=== PATIENT | male | born 1950 | race Caucasian/White ===

== ENCOUNTER 2016-09-26 08:37 | Day surgery (SDC) | payer OTHER ==
[2016-09-25 11:31] LABS: MANUAL DIFF NEEDED? NO
[2016-09-25 11:31] LABS: URINE MICRO REVIEW NEEDED? NO; URINE SOURCE CLEAN CATCH
[2016-09-25 11:37] LABS: BASO% 0.4 % (0.0-0.8); EOS# 0.26 X1000 (0.0-0.7); EOS% 3.6 % (0.0-10.0); HEMATOCRIT 42.9 % (42.0-52.0); HEMOGLOBIN 14.1 g/dL (14.0-18.0); LYMPH# 1.19 X1000 (1.2-3.4); LYMPH% 16.6 % (20.5-51.1); MCH 30.1 PG (27-31); MCHC 32.9 g/dL (33-37); MCV 91.5 FL (81-99); MONO# 0.46 X1000 (0.11-0.59); MONO% 6.4 % (1.7-9.3); MPV 10.3 FL (7.4-10.4); PLT 239 X1000 (130-400); RBC 4.69 XMIL (4.7-6.1)
[2016-09-25 11:38] LABS: BILIRUBIN URINE NEGATIVE (NEGATIVE); BLOOD URINE NEGATIVE (NEGATIVE); COLOR STRAW; GLUCOSE URINE 200 mg/dL (NEGATIVE); LEUKOCYTES URINE NEGATIVE (NEGATIVE); NITRITE URINE NEGATIVE (NEGATIVE); PROTEIN URINE NEGATIVE (NEGATIVE); SP GRAVITY URINE 1.006; TURBIDITY URINE CLEAR (CLEAR); UR EPITHELIAL CELLS <10 /HPF (<10); URINE BACTERIA NEGATIVE /HPF; URINE RBC <10 /HPF (<10); URINE WBC <10 /HPF (<10); UROBILINOGEN URINE NORMAL (NORMAL)
--- NOTE | 2016-09-25 11:48 | Diag Imaging Result Document ---
PROCEDURE NAME: CHEST-2 VIEWS - 09/25/2016 CHEST X-RAY 2 VIEWS, 09/25/2016: COMPARISON: 07/13/2012. FINDINGS: There is focal infiltrate in the right upper lobe. Heart size is normal. No pneumothorax or pleural effusion. The right minor fissure appears to be elevated. IMPRESSION: Right upper lobe airspace opacity. Elevation of the right minor fissure. Clinical correlation recommended. Chest CT is also recommended.
[2016-09-25 11:55] LABS: AGAP 12; ALBUMIN 3.7 g/dL (3.5-5.0); ALKALINE PHOSPHATASE 103 U/L (32-122); BUN 15 mg/dL (8-22); CHLORIDE 103 mmol/L (98-107); COSMO 280; GOT 13 U/L (10-34); GPT 12 U/L (10-44); POTASSIUM 4.2 mmol/L (3.5-5.1); SODIUM 139 mmol/L (136-145); TCO2 24 mmol/L (25-35); TOTAL BILIRUBIN 0.25 mg/dL (0.20-1.00); TOTAL PROTEIN 6.2 g/dL (6.3-8.3)
--- NOTE | 2016-09-25 14:33 | EKG Report ---
Test Performed on : 09/25/2016 11:10:11 AM Test Reason : PAT Blood Pressure : / mmHG Vent. Rate : 065 BPM Atrial Rate : 065 BPM P-R Int : 156 ms QRS Dur : 096 ms QT Int : 402 ms P-R-T Axes : 040 -45 090 degrees QTc Int : 418 ms Normal sinus rhythm. Left axis deviation Anteroseptal infarct (cited on or before 13-JUL-2012) Nonspecific T wave abnormality Abnormal ECG When compared with ECG of 13-JUL-2012 13:12, ST no longer depressed in Inferior leads ST no longer elevated in Anterolateral leads T wave inversion now evident in Anterolateral leads Confirmed by Vignesh Mckenzie MD ([id number]) on 09/26/2016 9:44:39 PM
[2016-09-26] MEDS ORDERED: REGLAN ONE (08:54)
[2016-09-26] MEDS ORDERED: LR 1,000 ML ONE (08:54)
[2016-09-26] MEDS ORDERED: PEPCID ONE ×2 (08:54)
[2016-09-26] MEDS ORDERED: KEFZOL 1 GM/D5W 50 ML ONE (08:55)
[2016-09-26] MEDS ORDERED: ROBINUL ONE (10:59)
[2016-09-26] MEDS ORDERED: MARCAINE 0.25% PF/EPI 1:200,000 ONE (11:10)
[2016-09-26] MEDS ORDERED: FENTANYL ONE (12:45)
[2016-09-26] MEDS: MORPHINE ONE ×4 (12:52→13:09)
[2016-09-26] MEDS ORDERED: AMIDATE ONE (13:17)
[2016-09-26] MEDS ORDERED: QUELICIN (DOSE) ONE (13:17)
[2016-09-26] MEDS ORDERED: XYLOCAINE-MPF 2% ONE (13:17)
[2016-09-26] MEDS ORDERED: LR 500 ML ONE (13:21)
--- NOTE | 2016-09-26 13:35 | OPERATIVE NOTE ---
PROCEDURE DATE: 09/26/2016 PREOPERATIVE DIAGNOSIS: Incarcerated right inguinal hernia with cecal contents. POSTOPERATIVE DIAGNOSIS: Incarcerated right inguinal hernia with cecal contents. PROCEDURE PERFORMED: Repair with large mesh plug and overlay. SURGEON: Grayson Krause MD DESCRIPTION OF PROCEDURE: The patient was brought to the operating room and, after satisfactory induction of IV and endotracheal anesthesia, athrombic TEDs and a Schumacher catheter were placed. His right groin was prepped and draped in the appropriate manner. A low oblique incision was taken down through skin and subcutaneous tissue between the anterior superior iliac spine and pubic tubercle. Dissection was taken down through skin and subcutaneous tissue. External oblique was significantly attenuated secondary to the large size of the hernia. The cord structures were mobilized. A very large indirect hernia sac was teased away from the cord structures. It was opened. There were no visceral contents. There was some properitoneal fat. At the internal ring, the hernia sac was stapled with a TA-30 stapler and amputated. The leading edge of the staple line was subsequently tacked to a large mesh plug, contents reduced, and sewn to surrounding transversalis and inguinal ligament with 0 Surgilon. Mesh overlay was subsequently placed beneath the cord structures and likewise sewn in with 0 Surgilon. On completion, the reconstructed floor appeared to be strong. The area was irrigated with 10 mL of Marcaine with epinephrine. The external oblique, such as it was, was closed with interrupted 3-0 Vicryl. The subcu was infiltrated with another 10 mL of Marcaine and closed with another layer of 3-0 Vicryl. The skin itself was closed with 4-0 Vicryl subcuticular. Steri-Strips, Telfa, and Op-Sites were applied. The Schumacher catheter was removed. The patient was awakened, extubated in the operating room, and transferred to recovery. Estimated blood loss was around 10 mL.
[2016-09-26] MEDS ORDERED: NORCO-10 ONE (13:41)
[2016-09-26 14:34] VITALS: BP 144/77
== END 2016-09-26 14:54 | disposition home or self-care (01) ==
LOC: OPS 08:37
PROVIDERS: ATTEND Surgery
DX: K40.30 Unilateral inguinal hernia, with obstruction, without gangrene, not specified as recurrent (principal); I10 Essential (primary) hypertension
CPT/HCPCS: 71020; 80053; 81001; 85025; 88302; 93005; 93010; J0330; J0690; J2270; J3010; J7120

== ENCOUNTER 2016-10-05 08:25 | Day surgery (SDC) | payer OTHER ==
[2016-10-04 09:03] LABS: MANUAL DIFF NEEDED? NO
[2016-10-04 09:13] LABS: BASO% 0.4 % (0.0-0.8); EOS# 0.22 X1000 (0.0-0.7); EOS% 3.1 % (0.0-10.0); HEMOGLOBIN 13.9 g/dL (14.0-18.0); IMM GRAN# 0.02 X1000 (0.0-0.04); IMM GRAN% 0.3 % (0.0-0.5); LYMPH# 1.27 X1000 (1.2-3.4); LYMPH% 17.7 % (20.5-51.1); MCH 30.3 PG (27-31); MCHC 33.1 g/dL (33-37); MCV 91.5 FL (81-99); MONO# 0.46 X1000 (0.11-0.59); MONO% 6.4 % (1.7-9.3); MPV 10.1 FL (7.4-10.4); NEUT% 72.1 % (42.2-75.2); PLT 303 X1000 (130-400); RBC 4.59 XMIL (4.7-6.1)
[2016-10-04 09:20] LABS: AGAP 14; BUN 19 mg/dL (8-22); CALCIUM 9.2 mg/dL (8.8-10.2); CHLORIDE 102 mmol/L (98-107); COSMO 285; POTASSIUM 4.6 mmol/L (3.5-5.1); SODIUM 141 mmol/L (136-145); TCO2 25 mmol/L (25-35)
[2016-10-05] MEDS ORDERED: REGLAN ONE (09:04)
[2016-10-05] MEDS ORDERED: KEFZOL 1 GM/D5W 50 ML ONE (09:04)
[2016-10-05] MEDS ORDERED: PEPCID ONE (09:04)
[2016-10-05] MEDS ORDERED: LR 1,000 ML ONE ×2 (09:04→11:22)
[2016-10-05] MEDS ORDERED: XYLOCAINE 2% JELLY ONE (09:29)
--- NOTE | 2016-10-05 10:20 | Diag Imaging Result Document ---
PROCEDURE NAME: KUB ABDOMEN - 10/05/2016 X-RAY ABDOMEN, 10/05/2016: COMPARISON: 09/07/2016. FINDINGS: There is a relatively large, irregular calcification projecting over the left renal shadow measuring about 11 mm. No abnormal calcifications in the pelvis. No bowel obstruction or free air. IMPRESSION: Left-sided renal stone.
[2016-10-05] MEDS ORDERED: B & O 16A SUPP ONE (10:24)
[2016-10-05] MEDS ORDERED: DIPRIVAN 1% ONE (11:08)
[2016-10-05] MEDS ORDERED: MANNITOL ONE (11:22)
[2016-10-05] MEDS ORDERED: XYLOCAINE-MPF 2% ONE (11:22)
[2016-10-05] MEDS ORDERED: DECADRON ONE (11:22)
[2016-10-05] MEDS ORDERED: ZOFRAN ONE (11:22)
[2016-10-05] MEDS ORDERED: NORCO-7.5 ONE (11:33)
[2016-10-05] MEDS ORDERED: PYRIDIUM ONE (11:35)
[2016-10-05] MEDS ORDERED: PERCOCET-5 ONE (11:36)
[2016-10-05 11:47] VITALS: BP 122/60
--- NOTE | 2016-10-05 12:27 | OPERATIVE NOTE ---
PROCEDURE DATE: 10/05/2016 PREOPERATIVE DIAGNOSES: 1. Left proximal ureteral stones. 2. Left renal stones. POSTOPERATIVE DIAGNOSES: 1. Left large renal stone about 18 x 12 mm. 2. No ureteral stones. PROCEDURE: Cystoscopy, left retrograde pyelogram, and double-J stent insertion. ANESTHESIA: General. SURGEON: Christen Bower MD. ADDITIONAL DIAGNOSIS: Benign prostatic hypertrophy with bladder outlet obstruction, partial. DESCRIPTION OF PROCEDURE: The patient was explained the risks and benefits. He was taken to the operating room and was induced with general anesthesia. He was prepped and draped in dorsal lithotomy position. A #21 rigid cystoscope was negotiated in the external meatus and some resistance was encountered. It was dilated and then I could pass a #21 cystoscope into the bladder. The prostatic urethra was occluded by bilobar hypertrophy of the prostate and it was measured about 4 cm in length. There was mild trabeculation in the bladder. The ureteral orifices were identified easily and #5 open catheter was introduced in the left ureter. Retrograde pyelogram was done. There were no ureteral stones. 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 We put in a 6x24 double-J stent with a string without any difficulty. Lidocaine jell 2% was inserted into the urethra. He has done well. The patient was prepped and draped again. The stone was easily localized and it was treated with a gradually increasing level of energy. Most of the shock waves were entered at energy level 7. We delivered a total of 3000 impulses. It looked like the stone was pulverized but looking at the big size of the stone, it was hard to predict and we will do a follow KUB in the office next week. The double-J stent will be removed on Sunday. [facility]
== END 2016-10-05 12:05 | disposition home or self-care (01) ==
LOC: OR 08:25
PROVIDERS: ATTEND Specialist
DX: N20.0 Calculus of kidney (principal); N40.1 Benign prostatic hyperplasia with lower urinary tract symptoms; N13.8 Other obstructive and reflux uropathy; I10 Essential (primary) hypertension; E11.9 Type 2 diabetes mellitus without complications
CPT/HCPCS: 74000; 80048; 82948; 85025; C2617; J0690; J1100; J2150; J2405; J7120; Q9966